=== PATIENT | female | born 1985 | race African-American/Black ===

== ENCOUNTER 2017-03-23 02:56 | Inpatient (IN) ==
[2017-03-23 04:11] LABS: Apearance,Urine CLEAR (Clear); Bilirubin,Urine Negative (Negative); Blood, Urine Negative (Negative); Calcium Oxalate Crystals,Urine Occasional /HPF (Few); Glucose,Urine (UA) Negative (Negative); Ketones,Urine 20 mg/dL (Negative); Mucus,Urine Occasional /LPF (Occasional); Nitrite,Urine Negative (Negative); Protein,Urine Negative; RBC,Urine 7 /HPF (0-4); Squamous Epithelial Cell,Urine Occasional /HPF (0-10); Urine Color Yellow (Yellow); Urine Specific Gravity 1.019 (1.001-1.035); Urine Urobilinogen < 2.0 EU/DL (0.2-1.0); WBC,Urine 1 /HPF (0-6)
[2017-03-23] MEDS ORDERED: TERBUTALINE 1 MG/1 ML VIAL SUBCUT ONE ×2 (04:27→05:00)
[2017-03-23] MEDS ORDERED: MEPERIDINE 50 MG/1 ML VIAL IV ONE (04:54)
[2017-03-23] MEDS ORDERED: ONDANSETRON 4 MG/2 ML VIAL IV ONE (04:54)
[2017-03-23] MEDS ORDERED: LACTATED RINGERS 1,000 ML IV ONE (04:55)
[2017-03-23] MEDS ORDERED: ONDANSETRON 4 MG/2 ML VIAL IV PRN ×2 (05:41→13:21)
[2017-03-23] MEDS ORDERED: AMPICILLIN INJ 2,000 MG in SODIUM CHLORIDE 0.9% 100 ML IV ONE (05:42)
[2017-03-23] MEDS ORDERED: OXYTOCIN/LR 20 UNIT/1,000 ML BAG IV SCH (06:00)
[2017-03-23] MEDS ORDERED: LACTATED RINGERS 1,000 ML IV SCH ×2 (06:00→13:21)
[2017-03-23] MEDS ORDERED: CARBOPROST TROMETHAMINE 250 MCG/ML AMP IM ONE (06:36)
[2017-03-23 06:42] LABS: Basophils % 0.3 % (0.0-0.8); Eosinophils # 0.1 10*3/uL (0.0-0.87); Eosinophils % 0.6 % (0.00-10.9); Hematocrit 32.1 VOL% (35.7-47.0); Hemoglobin 10.6 GM/DL (12.0-16.0); Immature Granulocytes % 0.8 %; Immature Granulocytes Absolute 0.06 #; Lymphocytes # 1.9 10*3/uL (1.4-4.0); Lymphocytes % 23.7 % (21.3-54.2); Mean Corpuscular Hemoglobin 26 PG (27-34); Mean Corpuscular Volume 78.3 FL (87-102); Mean Platelet Volume 10.9 FL (9.6-12.0); Monocytes # 0.6 10*3/uL (0.11-0.8); Monocytes % 7.7 % (1.7-12.7); Neutrophils # 5.3 10*3/uL (1.4-7.4); Neutrophils % 66.9 % (38.7-73.9); Platelet Count 251 T/CUMM (130-400); Red Cell Distribution Width 15.7 % (9.3-17.3); White Blood Count 7.8 T/CUMM (4-12)
[2017-03-23 06:48] LABS: Cord Venous Blood HCO3 21.3 MMOL/L; Cord Venous Blood PCO2 33.9 MMHG; Cord Venous Blood PO2 40.3 MMHG
[2017-03-23 07:08] LABS: Alanine Aminotransferase 14 U/L (13-56); Albumin 2.7 G/DL (3.4-5.0); Alkaline Phosphatase 152 U/L (45-117); Aspartate Amino Transferase 20 U/L (0-37); Bilirubin,Total < 0.39 MG/DL (0.2-1.0); Blood Urea Nitrogen 5 MG/DL (7-18); Calcium 9.1 MG/DL (8.5-10.1); Glucose 107 MG/DL (74-106); Osmolality,Calculated 273.5 MOS/KG (273-304); Potassium 3.6 MMOL/L (3.5-5.1); Sodium 139 MMOL/L (136-145); Total Protein 6.7 G/DL (6.4-8.3)
[2017-03-23] MEDS ORDERED: MAGNESIUM HYDROXIDE SUSP 30 ML UDCUP PO PRN (13:21)
[2017-03-23] MEDS ORDERED: BISACODYL 10 MG SUPP RECTAL PRN (13:21)
[2017-03-23] MEDS ORDERED: ACETAMINOPHEN/CODEINE 300-30 MG TABLET PO SCH (13:21)
[2017-03-23] MEDS: IBUPROFEN 800 MG TABLET PO PRN (13:32)
[2017-03-23] MEDS ORDERED: ACETAMINOPHEN/CODEINE 300-30 MG TABLET PO PRN (13:38)
[2017-03-23] MEDS: MULTIVITAMIN (PRENATAL) TABLET PO SCH (15:28)
[2017-03-23] MEDS: ACETAMINOPHEN 325 MG TABLET PO PRN (20:42)
[2017-03-23] MEDS: DOCUSATE SODIUM 100 MG CAPSULE PO SCH (20:42)
[2017-03-24 05:51] LABS: Basophils % 0.3 % (0.0-0.8); Eosinophils # 0.1 10*3/uL (0.0-0.87); Eosinophils % 1.3 % (0.00-10.9); Hematocrit 22.9 VOL% (35.7-47.0); Immature Granulocytes % 0.9 %; Immature Granulocytes Absolute 0.09 #; Lymphocytes # 2.6 10*3/uL (1.4-4.0); Lymphocytes % 27.8 % (21.3-54.2); Mean Corpuscular HGB Conc 33.6 GM/DL (32-36); Mean Corpuscular Hemoglobin 27 PG (27-34); Mean Platelet Volume 11.2 FL (9.6-12.0); Monocytes # 0.8 10*3/uL (0.11-0.8); Neutrophils # 5.9 10*3/uL (1.4-7.4); Neutrophils % 61.7 % (38.7-73.9); Platelet Count 227 T/CUMM (130-400); Red Cell Distribution Width 15.8 % (9.3-17.3); White Blood Count 9.5 T/CUMM (4-12)
[2017-03-24] MEDS: ACETAMINOPHEN 325 MG TABLET PO PRN (05:56)
[2017-03-24 05:58] LABS: Hemoglobin 7.7 GM/DL (12.0-16.0)
[2017-03-24] MEDS ORDERED: FERROUS SULFATE 325 MG TABLET PO SCH (09:00)
[2017-03-24] MEDS: DOCUSATE SODIUM 100 MG CAPSULE PO SCH ×3 (09:13→21:02)
[2017-03-24] MEDS: MULTIVITAMIN (PRENATAL) TABLET PO SCH (09:13)
[2017-03-24] MEDS: IBUPROFEN 800 MG TABLET PO PRN ×2 (09:15→19:52)
[2017-03-24] MEDS: IRON (CARBONYL)/VIT C/B12/FA TABLET PO SCH (09:56)
[2017-03-25] MEDS: IBUPROFEN 800 MG TABLET PO PRN (07:43)
[2017-03-25 07:52] VITALS: BP 107/61
[2017-03-25] MEDS: IRON (CARBONYL)/VIT C/B12/FA TABLET PO SCH (09:21)
[2017-03-25] MEDS: DOCUSATE SODIUM 100 MG CAPSULE PO SCH (09:21)
[2017-03-25] MEDS: MULTIVITAMIN (PRENATAL) TABLET PO SCH (09:22)
== END 2017-03-25 12:20 | disposition home or self-care (01) | DRG 560 ==
LOC: N.LDOUT 02:56 → N.LD 03:03 → N.OB 08:31
PROVIDERS: ADMIT Obstetrics & Gynecology; ATTEND Obstetrics & Gynecology

== ENCOUNTER 2018-06-19 13:30 | Inpatient (IN) ==
[2018-06-19 14:30] LABS: Apearance,Urine CLEAR (Clear); Bilirubin,Urine Negative (Negative); Blood, Urine Negative (Negative); Glucose,Urine (UA) Negative (Negative); Hyaline Casts,Urine 1 /LPF (0-3); Ketones,Urine 5 mg/dL (Negative); Mucus,Urine Many /LPF (Occasional); Nitrite,Urine Negative (Negative); Protein,Urine Negative; RBC,Urine <1 /HPF (0-4); Squamous Epithelial Cell,Urine Occasional /HPF (0-10); Urine Color Yellow (Yellow); Urine Specific Gravity 1.021 (1.001-1.035); Urine Urobilinogen < 2.0 EU/DL (0.2-1.0); WBC,Urine 1 /HPF (0-6)
[2018-06-19] MEDS ORDERED: MEPERIDINE 25 MG/1 ML VIAL IV ONE (18:02)
[2018-06-19] MEDS ORDERED: ONDANSETRON 4 MG/2 ML VIAL IV ONE (18:02)
[2018-06-19] MEDS ORDERED: LACTATED RINGERS 1,000 ML IV ONE (18:02)
[2018-06-19 18:59] LABS: Apearance,Urine CLOUDY (Clear); Bacteria,Urine Occasional /HPF (Few); Bilirubin,Urine Negative (Negative); Blood, Urine Negative (Negative); Glucose,Urine (UA) Negative (Negative); Ketones,Urine 20 mg/dL (Negative); Mucus,Urine Occasional /LPF (Occasional); Nitrite,Urine Negative (Negative); Protein,Urine Negative; RBC,Urine 10 /HPF (0-4); Squamous Epithelial Cell,Urine Occasional /HPF (0-10); Urine Color Yellow (Yellow); Urine Specific Gravity 1.016 (1.001-1.035); Urine Urobilinogen < 2.0 EU/DL (0.2-1.0); WBC,Urine 3 /HPF (0-6)
[2018-06-19] MEDS: DEXTROSE 5% LACTATED RINGERS 1,000 ML IV SCH (20:00)
[2018-06-19 21:24] LABS: Barbiturates Screen,Urine Negative (Negative); Benzodiazepines Screen,Urine Negative (Negative); Cannabinoid Screen,Urine Negative (Negative); Opiate Screen,Urine Negative (Negative); Phencyclidine Screen,Urine Negative (Negative)
[2018-06-20] MEDS ORDERED: ACETAMINOPHEN 500 MG TABLET PO PRN (04:40)
[2018-06-20] MEDS: DEXTROSE 5% LACTATED RINGERS 1,000 ML IV SCH (05:17)
[2018-06-20] MEDS ORDERED: ALUMINUM/MAGNES/SIMETH MAX STR 30 ML UDCUP PO PRN (06:17)
[2018-06-20] MEDS ORDERED: AMPICILLIN INJ 2,000 MG in SODIUM CHLORIDE 0.9% 100 ML IV ONE (08:24)
[2018-06-20] MEDS ORDERED: LACTATED RINGERS 1,000 ML IV SCH ×2 (09:30→13:00)
[2018-06-20] MEDS ORDERED: OXYTOCIN/LR 20 UNIT/1,000 ML BAG IV SCH (09:30)
[2018-06-20 10:37] LABS: Basophils % 0.6 % (0.0-0.8); Eosinophils # 0.2 10*3/uL (0.0-0.87); Eosinophils % 3.1 % (0.00-10.9); Hemoglobin 9.5 GM/DL (12.0-16.0); Immature Granulocytes % 0.7 %; Immature Granulocytes Absolute 0.05 #; Lymphocytes # 1.6 10*3/uL (1.4-4.0); Lymphocytes % 21.8 % (21.3-54.2); Mean Corpuscular HGB Conc 31.7 GM/DL (32-36); Mean Corpuscular Volume 83.8 FL (87-102); Mean Platelet Volume 10.5 FL (9.6-12.0); Monocytes % 9.2 % (1.7-12.7); Neutrophils % 64.6 % (38.7-73.9); Platelet Count 217 T/CUMM (130-400); Red Blood Count 3.58 MC/CUMM (3.8-5.5); Red Cell Distribution Width 15.5 % (9.3-17.3); White Blood Count 7.1 T/CUMM (4-12)
[2018-06-20] MEDS ORDERED: MEPERIDINE 25 MG/1 ML VIAL IV PRN (11:03)
[2018-06-20] MEDS ORDERED: ONDANSETRON 4 MG/2 ML VIAL IV PRN (11:04)
[2018-06-20] MEDS ORDERED: miSOPROStol 200 MCG TABLET ONE (11:44)
[2018-06-20] MEDS ORDERED: LIDOCAINE 1% 50 ML VIAL ONE (11:44)
[2018-06-20] MEDS ORDERED: METHYLERGONOVINE 0.2 MG/1 ML AMP ONE (11:45)
[2018-06-20] MEDS ORDERED: AMPICILLIN INJ 2,000 MG in SODIUM CHLORIDE 0.9% 100 ML IV SCH (12:30)
[2018-06-20] MEDS ORDERED: AMPICILLIN INJ 1,000 MG in SODIUM CHLORIDE 0.9% 100 ML IV SCH (12:30)
[2018-06-20 12:32] LABS: Cord Venous Blood HCO3 23.8 MMOL/L; Cord Venous Blood PCO2 34.3 MMHG; Cord Venous Blood PO2 43.3 MMHG
[2018-06-20] MEDS ORDERED: MAGNESIUM HYDROXIDE SUSP 30 ML UDCUP PO PRN (12:35)
[2018-06-20] MEDS ORDERED: ACETAMINOPHEN 325 MG TABLET PO PRN (12:35)
[2018-06-20] MEDS ORDERED: BISACODYL 10 MG SUPP RECTAL PRN (12:35)
[2018-06-20] MEDS: IBUPROFEN 800 MG TABLET PO PRN (16:58)
[2018-06-20] MEDS: DOCUSATE SODIUM 100 MG CAPSULE PO SCH (20:04)
[2018-06-21] MEDS: IBUPROFEN 800 MG TABLET PO PRN ×2 (04:15→15:24)
[2018-06-21 05:54] LABS: Basophils # 0.1 10*3/uL (0.0-0.2); Basophils % 0.5 % (0.0-0.8); Eosinophils # 0.2 10*3/uL (0.0-0.87); Eosinophils % 2.4 % (0.00-10.9); Hemoglobin 9.2 GM/DL (12.0-16.0); Immature Granulocytes % 0.9 %; Immature Granulocytes Absolute 0.08 #; Lymphocytes # 2.3 10*3/uL (1.4-4.0); Lymphocytes % 24.6 % (21.3-54.2); Mean Corpuscular HGB Conc 31.7 GM/DL (32-36); Mean Corpuscular Volume 82.9 FL (87-102); Mean Platelet Volume 10.4 FL (9.6-12.0); Monocytes % 8.8 % (1.7-12.7); Neutrophils % 62.8 % (38.7-73.9); Platelet Count 207 T/CUMM (130-400); Red Cell Distribution Width 15.5 % (9.3-17.3); White Blood Count 9.3 T/CUMM (4-12)
[2018-06-21] MEDS: MULTIVITAMIN (PRENATAL) TABLET PO SCH (08:47)
[2018-06-21] MEDS: DOCUSATE SODIUM 100 MG CAPSULE PO SCH ×2 (08:47→21:50)
[2018-06-22 08:27] VITALS: BP 142/87
[2018-06-22] MEDS: DOCUSATE SODIUM 100 MG CAPSULE PO SCH (09:15)
[2018-06-22] MEDS: MULTIVITAMIN (PRENATAL) TABLET PO SCH (09:16)
[2018-06-22] MEDS ORDERED: DIPH/TET/ACEL PERT BOOSTER VACCINE 0.5 ML VIAL IM ONE (11:18)
[2018-06-22] MEDS: IBUPROFEN 800 MG TABLET PO PRN (12:00)
== END 2018-06-22 16:44 | disposition home or self-care (01) | DRG 560 ==
LOC: N.LDOUT 13:30 → N.LD 13:34 → N.OB 06-20 13:46
PROVIDERS: ADMIT Obstetrics & Gynecology; ATTEND Obstetrics & Gynecology

== ENCOUNTER 2018-09-23 09:21 | Inpatient (IN) ==
[2018-09-23] MEDS ORDERED: HYDROmorphone 2 MG/1 ML VIAL IV STA ×2 (09:41→11:52)
[2018-09-23] MEDS ORDERED: ONDANSETRON 4 MG/2 ML VIAL IV STA (09:41)
[2018-09-23 09:58] LABS: Basophils % 0.4 % (0.0-0.8); Eosinophils # 0.2 10*3/uL (0.0-0.87); Eosinophils % 2.1 % (0.00-10.9); Hematocrit 38.6 VOL% (35.7-47.0); Hemoglobin 12.1 GM/DL (12.0-16.0); Immature Granulocytes % 0.4 %; Immature Granulocytes Absolute 0.04 #; Lymphocytes # 2.1 10*3/uL (1.4-4.0); Lymphocytes % 22.5 % (21.3-54.2); Mean Corpuscular HGB Conc 31.3 GM/DL (32-36); Mean Corpuscular Volume 82.3 FL (87-102); Mean Platelet Volume 10.2 FL (9.6-12.0); Monocytes % 5.9 % (1.7-12.7); Neutrophils % 68.7 % (38.7-73.9); Platelet Count 271 T/CUMM (130-400); Red Blood Count 4.69 MC/CUMM (3.8-5.5); Red Cell Distribution Width 17.9 % (9.3-17.3); White Blood Count 9.4 T/CUMM (4-12)
[2018-09-23 10:19] LABS: Alanine Aminotransferase 179 U/L (13-56); Albumin 3.7 G/DL (3.4-5.0); Alkaline Phosphatase 112 U/L (45-117); Aspartate Amino Transferase 477 U/L (0-37); Blood Urea Nitrogen 11 MG/DL (7-18); Calcium 9.2 MG/DL (8.5-10.1); Glucose 130 MG/DL (74-106); Osmolality,Calculated 281.3 MOS/KG (273-304)
[2018-09-23] MEDS ORDERED: SODIUM CHLORIDE 0.9% 1,000 ML IV STA (10:28)
[2018-09-23] MEDS ORDERED: PIPERACILLIN/TAZOBACTAM 3,375 MG in SODIUM CHLORIDE 0.9% 100 ML IV STA (10:28)
[2018-09-23 10:35] LABS: Apearance,Urine Slightly Hazy (Clear); Bacteria,Urine Moderate /HPF (Few); Bilirubin,Urine Negative (Negative); Blood, Urine Negative (Negative); Calcium Oxalate Crystals,Urine Few /HPF (Few); Glucose,Urine (UA) Negative (Negative); Ketones,Urine Negative (Negative); Mucus,Urine Many /LPF (Occasional); Nitrite,Urine Negative (Negative); Protein,Urine 30 MG/DL; RBC,Urine 10 /HPF (0-4); Squamous Epithelial Cell,Urine Few /HPF (0-10); Urine Color Amber (Yellow); Urine Specific Gravity 1.029 (1.001-1.035); WBC,Urine 34 /HPF (0-6)
[2018-09-23] MEDS: ONDANSETRON 4 MG/2 ML VIAL IV PRN (13:45)
[2018-09-23] MEDS: SODIUM CHLORIDE 0.45% 1,000 ML IV SCH (13:45)
[2018-09-23] MEDS: HYDROmorphone 2 MG/1 ML VIAL IV PRN (16:00)
[2018-09-23] MEDS: PIPERACILLIN/TAZOBACTAM 3,375 MG in SODIUM CHLORIDE 0.9% 100 ML IV SCH (17:20)
[2018-09-24] MEDS: SODIUM CHLORIDE 0.45% 1,000 ML IV SCH ×3 (01:15→12:00)
[2018-09-24] MEDS: HYDROmorphone 2 MG/1 ML VIAL IV PRN ×3 (01:16→21:06)
[2018-09-24] MEDS: PIPERACILLIN/TAZOBACTAM 3,375 MG in SODIUM CHLORIDE 0.9% 100 ML IV SCH ×3 (01:36→18:51)
[2018-09-24] MEDS ORDERED: INDOCYANINE GREEN 25 MG VIAL IV ONE (05:00)
[2018-09-24 05:38] LABS: Basophils % 0.6 % (0.0-0.8); Eosinophils # 0.3 10*3/uL (0.0-0.87); Eosinophils % 6.5 % (0.00-10.9); Hemoglobin 11.6 GM/DL (12.0-16.0); Immature Granulocytes % 0.2 %; Immature Granulocytes Absolute 0.01 #; Lymphocytes # 1.3 10*3/uL (1.4-4.0); Lymphocytes % 27.1 % (21.3-54.2); Mean Corpuscular HGB Conc 32.2 GM/DL (32-36); Mean Corpuscular Volume 81.6 FL (87-102); Monocytes % 5.1 % (1.7-12.7); Neutrophils % 60.5 % (38.7-73.9); Platelet Count 250 T/CUMM (130-400); Red Blood Count 4.41 MC/CUMM (3.8-5.5); Red Cell Distribution Width 17.6 % (9.3-17.3); White Blood Count 4.9 T/CUMM (4-12)
[2018-09-24 06:14] LABS: Calcium 8.4 MG/DL (8.5-10.1); Osmolality,Calculated 278.3 MOS/KG (273-304)
[2018-09-24 06:16] LABS: Albumin 3.3 G/DL (3.4-5.0); Bilirubin,Direct 0.78 MG/DL (0.0-0.20); Bilirubin,Indirect 1.3 MG/DL (0.0-1.0); Bilirubin,Total 2.1 MG/DL (0.2-1.0); Total Protein 7.1 G/DL (6.4-8.3)
[2018-09-24] MEDS ORDERED: cefOXitin 2,000 MG in SYRINGE 1 EACH IV ONE (06:30)
[2018-09-24] MEDS: ONDANSETRON 4 MG/2 ML VIAL IV PRN (21:11)
[2018-09-25] MEDS: PIPERACILLIN/TAZOBACTAM 3,375 MG in SODIUM CHLORIDE 0.9% 100 ML IV SCH ×2 (01:24→10:08)
[2018-09-25] MEDS: SODIUM CHLORIDE 0.45% 1,000 ML IV SCH ×3 (01:24→12:00)
[2018-09-25] MEDS: ENOXAPARIN 40 MG/0.4 ML SYRINGE SUBCUT SCH (05:34)
[2018-09-25 07:13] LABS: Basophils % 0.7 % (0.0-0.8); Eosinophils # 0.4 10*3/uL (0.0-0.87); Eosinophils % 7.1 % (0.00-10.9); Hematocrit 36.2 VOL% (35.7-47.0); Hemoglobin 11.6 GM/DL (12.0-16.0); Immature Granulocytes % 0.3 %; Immature Granulocytes Absolute 0.02 #; Lymphocytes # 1.8 10*3/uL (1.4-4.0); Lymphocytes % 31.3 % (21.3-54.2); Mean Corpuscular Volume 82.1 FL (87-102); Mean Platelet Volume 10.7 FL (9.6-12.0); Monocytes % 7.8 % (1.7-12.7); Neutrophils % 52.8 % (38.7-73.9); Platelet Count 239 T/CUMM (130-400); Red Blood Count 4.41 MC/CUMM (3.8-5.5); Red Cell Distribution Width 17.7 % (9.3-17.3); White Blood Count 5.8 T/CUMM (4-12)
[2018-09-25 07:31] LABS: Albumin 3.3 G/DL (3.4-5.0); Bilirubin,Direct 0.24 MG/DL (0.0-0.20); Bilirubin,Indirect 0.8 MG/DL (0.0-1.0); Calcium 8.3 MG/DL (8.5-10.1); Osmolality,Calculated 279.1 MOS/KG (273-304); Total Protein 7.4 G/DL (6.4-8.3)
[2018-09-25] MEDS ORDERED: cefOXitin 2,000 MG in SYRINGE 1 EACH IV ONE (07:32)
[2018-09-25] MEDS ORDERED: BUPIVACAINE MPF 0.25% /EPI 30 ML VIAL ONE (08:40)
[2018-09-25] MEDS ORDERED: TISSUE ADHESIVE 1 EACH APPLICATOR TOP ONE (08:40)
[2018-09-25] MEDS ORDERED: LIDOCAINE 1% 20 ML VIAL ONE (08:40)
[2018-09-25] MEDS ORDERED: MEPERIDINE 25 MG/1 ML VIAL IV PRN (10:03)
[2018-09-25] MEDS ORDERED: PROMETHAZINE INJ 25 MG in SODIUM CHLORIDE 0.9% 50 ML IV PRN (10:03)
[2018-09-25] MEDS ORDERED: ONDANSETRON 4 MG/2 ML VIAL IV PRN (10:03)
[2018-09-25] MEDS ORDERED: SEVOFLURANE 1 UNIT/15 MINUTE INH ONE (10:06)
[2018-09-25] MEDS ORDERED: fentaNYL 100 MCG/2 ML VIAL ONE ×2 (10:06)
[2018-09-25] MEDS ORDERED: PROPOFOL 200 MG/20 ML VIAL IV ONE (10:06)
[2018-09-25] MEDS ORDERED: GLYCOPYRROLATE 0.4 MG/2 ML VIAL ONE (10:07)
[2018-09-25] MEDS ORDERED: DEXAMETHASONE 4 MG/1 ML VIAL ONE (10:07)
[2018-09-25] MEDS ORDERED: SODIUM CHLORIDE 0.9% 1,000 ML IV ONE (10:07)
[2018-09-25] MEDS ORDERED: NEOSTIGMINE 10 MG/10 ML VIAL ONE (10:07)
[2018-09-25] MEDS ORDERED: ROCURONIUM 100 MG/10 ML VIAL IV ONE (10:07)
[2018-09-25] MEDS ORDERED: SUCCINYLCHOLINE 200 MG/10 ML VIAL ONE (10:07)
[2018-09-25] MEDS ORDERED: MIDAZOLAM 2 MG/2 ML VIAL ONE (10:07)
[2018-09-25] MEDS ORDERED: ONDANSETRON 4 MG/2 ML VIAL ONE (10:12)
[2018-09-25] MEDS ORDERED: MEPERIDINE 25 MG/1 ML VIAL ONE (10:12)
[2018-09-25] MEDS: HYDROmorphone 2 MG/1 ML VIAL IV PRN ×3 (11:02→19:48)
[2018-09-25] MEDS: ONDANSETRON 4 MG/2 ML VIAL IV PRN (19:49)
[2018-09-26] MEDS: SODIUM CHLORIDE 0.45% 1,000 ML IV SCH ×2 (01:08→05:23)
[2018-09-26] MEDS: HYDROmorphone 2 MG/1 ML VIAL IV PRN (01:31)
[2018-09-26] MEDS: ONDANSETRON 4 MG/2 ML VIAL IV PRN (01:31)
[2018-09-26] MEDS: ENOXAPARIN 40 MG/0.4 ML SYRINGE SUBCUT SCH (05:37)
[2018-09-26 07:37] VITALS: BP 147/85
[2018-09-26] MEDS ORDERED: SERTRALINE 50 MG TABLET PO SCH (09:00)
[2018-09-26] MEDS ORDERED: NORETHINDRONE 0.35 MG PO SCH (09:00)
== END 2018-09-26 10:48 | disposition home or self-care (01) | DRG 418 ==
LOC: N.ED 09:21 → N.EDINP 11:52 → N.3E 13:08
PROVIDERS: ADMIT Surgery; ATTEND Surgery
PROC: LAPCHOL (2018-09-25 09:00)

== ENCOUNTER 2020-03-12 16:20 | Inpatient (IN) ==
[2020-03-12] MEDS ORDERED: SODIUM CHLORIDE 0.9% 500 ML IV STA (18:47)
[2020-03-12] MEDS ORDERED: HYDROmorphone 2 MG/1 ML VIAL IV STA (18:47)
[2020-03-12] MEDS ORDERED: ONDANSETRON 4 MG/2 ML VIAL IV STA (18:47)
[2020-03-12 18:58] LABS: Basophils # 0.1 10*3/uL (0.0-0.2); Basophils % 0.6 % (0.0-0.8); Eosinophils # 0.2 10*3/uL (0.0-0.87); Eosinophils % 2.8 % (0.00-10.9); Hematocrit 41.9 VOL% (35.7-47.0); Hemoglobin 13.6 GM/DL (12.0-16.0); Immature Granulocytes % 0.6 %; Immature Granulocytes Absolute 0.05 #; Lymphocytes # 1.9 10*3/uL (1.4-4.0); Lymphocytes % 21.4 % (21.3-54.2); Mean Corpuscular HGB Conc 32.5 GM/DL (32-36); Mean Corpuscular Volume 88.6 FL (87-102); Mean Platelet Volume 10.6 FL (9.6-12.0); Monocytes % 7.6 % (1.7-12.7); Platelet Count 281 T/CUMM (130-400); Red Blood Count 4.73 MC/CUMM (3.8-5.5); Red Cell Distribution Width 14.6 % (9.3-17.3); White Blood Count 8.6 T/CUMM (4-12)
[2020-03-12 19:05] LABS: Bacteria,Urine Occasional /HPF (Few); Bilirubin,Urine Negative (Negative); Blood, Urine Large mg/dL (Negative); Glucose,Urine (UA) Negative (Negative); Ketones,Urine Negative (Negative); Mucus,Urine Many /LPF (Occasional); Nitrite,Urine Negative (Negative); Protein,Urine 30 MG/DL; RBC,Urine 8 /HPF (0-4); Squamous Epithelial Cell,Urine Few /HPF (0-10); Urine Appearance Slightly Hazy (Clear); Urine Color Yellow (Yellow); Urine Specific Gravity 1.027 (1.001-1.035); Urine Urobilinogen < 2.0 EU/DL (0.2-1.0); WBC,Urine 1 /HPF (0-6)
[2020-03-12 19:37] LABS: Albumin 3.8 G/DL (3.4-5.0); Bilirubin,Total 0.5 MG/DL (0.2-1.0); Calcium 8.7 MG/DL (8.5-10.1); Osmolality,Calculated 271.7 MOS/KG (273-304); Potassium 4.3 MMOL/L (3.5-5.1); Total Protein 8.6 G/DL (6.4-8.3)
[2020-03-12] MEDS ORDERED: ACETAMINOPHEN 325 MG TABLET PO PRN (22:08)
[2020-03-12] MEDS: HYDROmorphone 2 MG/1 ML VIAL IV PRN (22:39)
[2020-03-12] MEDS: CIPROFLOXACIN INJ 400 MG in PREMIX 1 EACH IV SCH (23:00)
[2020-03-12] MEDS: SODIUM CHLORIDE 0.9% 1,000 ML IV SCH (23:03)
[2020-03-13] MEDS: metroNIDAZOLE INJ 500 MG in PREMIX 1 EACH IV SCH ×3 (00:46→15:08)
[2020-03-13] MEDS: HYDROmorphone 2 MG/1 ML VIAL IV PRN (05:30)
[2020-03-13 07:01] LABS: Basophils % 0.4 % (0.0-0.8); Eosinophils # 0.3 10*3/uL (0.0-0.87); Eosinophils % 4.1 % (0.00-10.9); Hematocrit 37.5 VOL% (35.7-47.0); Hemoglobin 11.9 GM/DL (12.0-16.0); Immature Granulocytes % 0.4 %; Immature Granulocytes Absolute 0.03 #; Lymphocytes # 1.9 10*3/uL (1.4-4.0); Lymphocytes % 26.7 % (21.3-54.2); Mean Corpuscular HGB Conc 31.7 GM/DL (32-36); Mean Corpuscular Volume 89.3 FL (87-102); Mean Platelet Volume 10.5 FL (9.6-12.0); Monocytes % 9.1 % (1.7-12.7); Neutrophils % 59.3 % (38.7-73.9); Platelet Count 247 T/CUMM (130-400); Red Cell Distribution Width 14.6 % (9.3-17.3); White Blood Count 7.3 T/CUMM (4-12)
[2020-03-13] MEDS ORDERED: DEXTROSE 50% 25 GM/50 ML VIAL IV PRN (07:25)
[2020-03-13] MEDS ORDERED: GLUCAGON 1 MG VIAL IM PRN (07:25)
[2020-03-13 07:29] LABS: Albumin 3.1 G/DL (3.4-5.0); Bilirubin,Total 0.5 MG/DL (0.2-1.0); Calcium 7.8 MG/DL (8.5-10.1); Osmolality,Calculated 274.4 MOS/KG (273-304); Potassium 3.4 MMOL/L (3.5-5.1); Total Protein 6.9 G/DL (6.4-8.3)
[2020-03-13] MEDS: PANTOPRAZOLE 40 MG VIAL IV SCH (08:50)
[2020-03-13] MEDS: SODIUM CHLORIDE 0.9% 1,000 ML IV SCH ×2 (09:13→20:25)
[2020-03-13] MEDS: INSULIN REGULAR 100 UNIT/ML SUBCUT SCH ×4 (09:53→20:59)
[2020-03-13] MEDS ORDERED: busPIRone 10 MG TABLET PO PRN (12:35)
[2020-03-13] MEDS: CIPROFLOXACIN INJ 400 MG in PREMIX 1 EACH IV SCH ×2 (13:10→23:20)
[2020-03-13] MEDS: PROMETHAZINE INJ 25 MG in SODIUM CHLORIDE 0.9% 50 ML IV SCH (20:28)
[2020-03-13] MEDS: amLODIPine 10 MG TABLET PO SCH (20:29)
[2020-03-13] MEDS: traZODone 50 MG TABLET PO SCH (20:29)
[2020-03-14] MEDS: SODIUM CHLORIDE 0.9% 1,000 ML IV SCH ×2 (00:45→21:32)
[2020-03-14] MEDS: metroNIDAZOLE INJ 500 MG in PREMIX 1 EACH IV SCH ×3 (00:47→17:01)
[2020-03-14] MEDS: PROMETHAZINE INJ 25 MG in SODIUM CHLORIDE 0.9% 50 ML IV SCH ×3 (00:55→12:03)
[2020-03-14] MEDS: INSULIN REGULAR 100 UNIT/ML SUBCUT SCH ×4 (08:07→21:24)
[2020-03-14] MEDS: PANTOPRAZOLE 40 MG VIAL IV SCH (08:48)
[2020-03-14] MEDS: SERTRALINE 50 MG TABLET PO SCH (08:48)
[2020-03-14] MEDS: CIPROFLOXACIN INJ 400 MG in PREMIX 1 EACH IV SCH (12:21)
[2020-03-14] MEDS: amLODIPine 10 MG TABLET PO SCH (21:22)
[2020-03-14] MEDS: traZODone 50 MG TABLET PO SCH (21:22)
[2020-03-14] MEDS: HYDROmorphone 2 MG/1 ML VIAL IV PRN (21:31)
[2020-03-15] MEDS: CIPROFLOXACIN INJ 400 MG in PREMIX 1 EACH IV SCH (00:13)
[2020-03-15] MEDS: SODIUM CHLORIDE 0.9% 1,000 ML IV SCH ×2 (02:09→07:42)
[2020-03-15] MEDS: metroNIDAZOLE INJ 500 MG in PREMIX 1 EACH IV SCH ×2 (02:58→09:23)
[2020-03-15 06:26] LABS: Basophils # 0.1 10*3/uL (0.0-0.2); Basophils % 0.6 % (0.0-0.8); Eosinophils # 0.3 10*3/uL (0.0-0.87); Eosinophils % 3.2 % (0.00-10.9); Hematocrit 39.5 VOL% (35.7-47.0); Hemoglobin 12.8 GM/DL (12.0-16.0); Immature Granulocytes Absolute 0.08 #; Lymphocytes # 2.5 10*3/uL (1.4-4.0); Lymphocytes % 30.6 % (21.3-54.2); Mean Corpuscular HGB Conc 32.4 GM/DL (32-36); Mean Corpuscular Volume 86.6 FL (87-102); Mean Platelet Volume 9.6 FL (9.6-12.0); Monocytes % 8.5 % (1.7-12.7); Neutrophils % 56.1 % (38.7-73.9); Platelet Count 309 T/CUMM (130-400); Red Blood Count 4.56 MC/CUMM (3.8-5.5); Red Cell Distribution Width 14.1 % (9.3-17.3)
[2020-03-15 06:51] LABS: Band Neutrophils 1 % (0-10); Eosinophils 2 % (0-10); Lymphocytes 35 % (20-55); Segmented Neutrophils 54 % (50-85); Total Cells Counted 100
[2020-03-15 06:52] LABS: Platelet Estimate Normal
[2020-03-15] MEDS: SERTRALINE 50 MG TABLET PO SCH (09:22)
[2020-03-15] MEDS: PANTOPRAZOLE 40 MG VIAL IV SCH (09:23)
[2020-03-15] MEDS: metroNIDAZOLE 500 MG TABLET PO SCH (17:41)
[2020-03-15] MEDS: amLODIPine 10 MG TABLET PO SCH (22:22)
[2020-03-15] MEDS: CIPROFLOXACIN 500 MG TABLET PO SCH (22:23)
[2020-03-15] MEDS: traZODone 50 MG TABLET PO SCH (22:23)
[2020-03-15] MEDS: INSULIN REGULAR 100 UNIT/ML SUBCUT SCH (22:30)
[2020-03-16] MEDS: SODIUM CHLORIDE 0.9% 1,000 ML IV SCH ×4 (01:14→09:00)
[2020-03-16 02:50] LABS: Basophils # 0.1 10*3/uL (0.0-0.2); Basophils % 0.6 % (0.0-0.8); Eosinophils # 0.3 10*3/uL (0.0-0.87); Eosinophils % 2.8 % (0.00-10.9); Hematocrit 39.6 VOL% (35.7-47.0); Hemoglobin 12.9 GM/DL (12.0-16.0); Immature Granulocytes % 0.9 %; Immature Granulocytes Absolute 0.09 #; Lymphocytes # 2.9 10*3/uL (1.4-4.0); Lymphocytes % 30.4 % (21.3-54.2); Mean Corpuscular HGB Conc 32.6 GM/DL (32-36); Mean Corpuscular Volume 87.6 FL (87-102); Mean Platelet Volume 9.9 FL (9.6-12.0); Neutrophils % 57.3 % (38.7-73.9); Platelet Count 312 T/CUMM (130-400); Red Blood Count 4.52 MC/CUMM (3.8-5.5); Red Cell Distribution Width 14.1 % (9.3-17.3); White Blood Count 9.6 T/CUMM (4-12)
[2020-03-16 03:25] LABS: Hypochromasia 1+; Platelet Estimate Normal
[2020-03-16] MEDS: INSULIN REGULAR 100 UNIT/ML SUBCUT SCH ×4 (05:22→12:04)
[2020-03-16] MEDS: PANTOPRAZOLE 40 MG VIAL IV SCH (09:00)
[2020-03-16] MEDS: metroNIDAZOLE 500 MG TABLET PO SCH ×2 (09:00→12:06)
[2020-03-16] MEDS: CIPROFLOXACIN 500 MG TABLET PO SCH (09:00)
[2020-03-16] MEDS: SERTRALINE 50 MG TABLET PO SCH (09:01)
[2020-03-16] MEDS: CIPROFLOXACIN INJ 400 MG in PREMIX 1 EACH IV SCH (10:59)
[2020-03-16 12:14] VITALS: BP 131/87
== END 2020-03-16 12:30 | disposition home or self-care (01) | DRG 249 ==
LOC: N.ED 16:20 → N.EDINP 20:42 → N.3E 21:48
PROVIDERS: ADMIT Surgery; ATTEND Surgery